=== PATIENT | female | born 1995 | race Caucasian/White ===

== ENCOUNTER 2020-04-08 12:53 | Inpatient (IN) ==
[2020-04-08] MEDS ORDERED: CeFAZolin Syr 3,000MG/30 ML 3,000 MG/30 ML SYRINGE IVPB ONE (13:09)
[2020-04-08] MEDS ORDERED: Famotidine 20 MG/2 ML VIAL IVP ONE (13:09)
[2020-04-08] MEDS ORDERED: Metoclopramide 10 MG/2 ML VIAL IVP ONE (13:09)
[2020-04-08] MEDS ORDERED: Lidocaine -MPF 2% 5 ML VIAL ONE ×2 (13:48→16:44)
[2020-04-08] MEDS ORDERED: *HR* Morphine Sulfate/PF 10 MG/10 ML AMPUL ONE (14:11)
[2020-04-08] MEDS ORDERED: *HR* FentaNYL (PF) 100 MCG/2 ML VIAL ONE (14:11)
[2020-04-08 14:20] LABS: White Blood Count 12.9 K/mcL (4.3-11.1)
[2020-04-08 14:21] LABS: Basophils % 0.2 %; Eosinophils # 0.1 K/mcL (0.0-0.6); Eosinophils % 0.5 %; Hemoglobin 10.2 g/dL (11.5-15.4); Immature Granulocytes % 0.6 % (0-4); Lymphocytes # 1.9 K/mcL (0.6-4.6); Lymphocytes % 14.9 %; Mean Corpuscular Hemoglobin 23.4 pg (28.0-33.3); Mean Platelet Volume 10.7 fL (9.4-12.4); Monocytes # 0.6 K/mcL (0.0-1.3); Monocytes % 4.9 %; Neutrophils # 10.2 K/mcL (1.6-8.9); Platelet Count 322 K/mcL (140-400); Red Blood Count 4.36 M/mcL (3.82-4.97); Red Cell Distribution Width 15.5 % (11.5-14.5); Segmented Neutrophils % 78.9 %
[2020-04-08 14:26] LABS: Amphetamine Screen,Urine Negative ng/mL (Cutoff=1000); Barbiturate Screen,Urine Negative ng/mL (Cutoff=200); Benzodiazepines Screen,Urine Negative ng/mL (Cutoff=200); Cannabinoid Screen,Urine Negative ng/mL (Cutoff = 50); Cocaine Screen,Urine Negative ng/mL (Cutoff= 300); Opiate Screen,Urine Negative ng/mL (Cutoff=300); Phencyclidine Screen,Urine Negative ng/mL (Cutoff=25)
[2020-04-08] MEDS ORDERED: Oxytocin 20 units/ LR 1000 mL 20 UNIT/1,000 ML BAG IVC ONE ×2 (14:43→18:25)
[2020-04-08] MEDS: Ringers Solution, Lactated 1,000 ML IVC SCH ×2 (15:00→15:14)
[2020-04-08] MEDS ORDERED: *HR* Phenylephrine 10 MG/ML VIAL ONE (16:16)
[2020-04-08] MEDS ORDERED: Dexamethasone 4 MG/ML VIAL ONE (16:21)
[2020-04-08] MEDS ORDERED: *HR* Promethazine 25 MG/ML VIAL ONE (16:21)
[2020-04-08] MEDS ORDERED: *HR* FentaNYL (PF) 100 MCG/2 ML VIAL IVP PRN (16:26)
[2020-04-08] MEDS ORDERED: *HR* OxyCODONE Immed Rel 5 MG TABLET PO PRN (16:26)
[2020-04-08] MEDS ORDERED: Naloxone 0.4 MG/ML INJ IVP PRN (16:26)
[2020-04-08] MEDS ORDERED: Ondansetron 4 MG/2 ML VIAL IVP PRN ×2 (16:26→19:51)
[2020-04-08] MEDS ORDERED: Acetaminophen IV 1,000 MG/100 ML BAG IVPB ONE (16:35)
[2020-04-08] MEDS ORDERED: *HR* Nalbuphine 10 MG/ML AMPUL IV PRN (17:32)
[2020-04-08] MEDS ORDERED: *HR* OxyCODONE/APAP 5/325 TABLET PO PRN (19:51)
[2020-04-08] MEDS ORDERED: Sennosides 8.6 MG TABLET PO PRN (19:51)
[2020-04-08] MEDS ORDERED: Oxytocin 20 units/ LR 1000 mL 20 UNIT/1,000 ML BAG IVC SCH (19:51)
[2020-04-08] MEDS ORDERED: Simethicone 80 MG TAB.CHEW PO PRN (19:51)
[2020-04-08] MEDS ORDERED: Rho Immune Globulin 1,500 UNIT SYRINGE IM ONE (19:51)
[2020-04-08] MEDS ORDERED: Metoclopramide 10 MG/2 ML VIAL IVP PRN (19:51)
[2020-04-09 05:30] LABS: Basophils % 0.1 %; Hematocrit 29.2 % (35.3-44.9); Hemoglobin 8.9 g/dL (11.5-15.4); Immature Granulocytes % 0.4 % (0-4); Lymphocytes # 1.7 K/mcL (0.6-4.6); Lymphocytes % 10.4 %; Mean Corpuscular HGB Conc 30.5 g/dL (31.6-35.5); Mean Corpuscular Hemoglobin 23.5 pg (28.0-33.3); Mean Corpuscular Volume 77.2 fL (83.0-100.0); Mean Platelet Volume 11.1 fL (9.4-12.4); Monocytes # 0.8 K/mcL (0.0-1.3); Monocytes % 4.7 %; Neutrophils # 13.5 K/mcL (1.6-8.9); Platelet Count 360 K/mcL (140-400); Red Blood Count 3.78 M/mcL (3.82-4.97); Red Cell Distribution Width 15.5 % (11.5-14.5); Segmented Neutrophils % 84.4 %; White Blood Count 16.1 K/mcL (4.3-11.1)
[2020-04-09] MEDS: Prenatal Vit/FA 1 EACH TABLET PO SCH (08:12)
[2020-04-09] MEDS: *HR* Enoxaparin 80 MG/0.8 ML SYRINGE SQ SCH ×2 (17:48→17:50)
[2020-04-09] MEDS: Ibuprofen 600 MG TABLET PO PRN (20:42)
[2020-04-10] MEDS: *HR* Enoxaparin 80 MG/0.8 ML SYRINGE SQ SCH (06:09)
[2020-04-10 08:33] VITALS: BP 127/82
[2020-04-10] MEDS: Prenatal Vit/FA 1 EACH TABLET PO SCH (08:42)
[2020-04-10] MEDS: Ibuprofen 600 MG TABLET PO PRN (08:43)
== END 2020-04-10 15:40 | disposition home or self-care (01) | DRG 540 ==
LOC: 1NENULAB 12:53 → 1NENUOBS 19:51
PROVIDERS: ADMIT Student in an Organized Health Care Education/Training Program; ATTEND Student in an Organized Health Care Education/Training Program